=== PATIENT | female | born 1955 | race Caucasian/White ===

== ENCOUNTER → 2018-01-21 10:40 | Outpatient (CLI) | payer OTHER, SELFPAY ==
--- NOTE | 2018-01-21 | DI.MG.S_ITS ---
BILATERAL DIGITAL SCREENING MAMMOGRAM 3D/2D WITH CAD: 01/21/2018 CLINICAL: Routine screening. Family history of breast cancer. Comparison is made to exams dated: 05/28/2016 mammogram, 06/07/2015 mammogram, and 05/10/2014 mammogram - [facility]. There are scattered fibroglandular elements in both breasts. Current study was also evaluated with a Computer Aided Detection (CAD) system. There are benign calcifications in both breasts. No significant masses, calcifications, or other findings are seen in either breast. There has been no significant interval change. IMPRESSION: BENIGN There is no mammographic evidence of malignancy. A 1 year screening mammogram is recommended. This exam was interpreted at Station ID: [id number]. NOTE: For mammograms, a report in lay terms will be sent to the patient. Approximately 15% of breast malignancies will not be visualized mammographically. In the management of a palpable breast mass, a negative mammogram must not discourage biopsy of a clinically suspicious lesion. Electronically Signed By: Gus sepulveda/antonella:01/23/2018 02:34:21 letter sent: Normal Exam ACR BI-RADS Category 2: Benign Finding(s) 3342F
== END ==
PROVIDERS: PCP Family Medicine; Visit Provider Family Medicine
DX: Z12.31 Encounter for screening mammogram for malignant neoplasm of breast (principal); Z80.3 Family history of malignant neoplasm of breast
CPT/HCPCS: 77063; 77067

== ENCOUNTER 2018-02-19 09:25 | Day surgery (SDC) | payer OTHER, SELFPAY ==
[2018-02-19 09:51] VITALS: BP 131/96; PULSE 78; RESP 16; TEMP 36.6; O2SAT 95; BMI 31.6
[2018-02-19] MEDS: SODIUM CHLORIDE 0.9% 1,000 ML 200 ML IV (10:04)
--- NOTE | 2018-02-19 10:53 | PM.HP.1 ---
History of Present Illness Date Patient Seen: 02/19/18 Time Patient Seen: 10:53 Chief complaint: [id number] Narrative: Very pleasant and generally healthy 63-year-old lady who presents for a screening colonoscopy. Her last colonoscopy was approximately 5 years ago. She has a personal history of polyps found at each of her prior colonoscopies. She denies any new problems or symptoms related to the function of her GI tract. Patient History Family & Social History Family History: Reviewed 02/19/18 by Sandra Hong MD Social History: household members spouse Meds Home Medications Medication Instructions Recorded Confirmed Type aspirin [Aspir-81] 81 mg PO DAILY 02/19/18 02/19/18 History atorvastatin 20 mg PO DAILY 02/19/18 02/19/18 History levothyroxine 75 mcg PO DAILY 02/19/18 02/19/18 History omeprazole 20 mg PO BID 02/19/18 02/19/18 History Allergies Allergy/AdvReac Type Severity Reaction Status Date / Time No Known Drug Allergies Allergy Verified 02/19/18 09:58 Review of Systems Review of Systems All systems reviewed & are unremarkable except as noted in HPI and below Exam Vital Signs (past 8 hours): - 02/19/18 09:51 Temperature 97.8 F Pulse Rate 78 Respiratory Rate 16 Blood Pressure 131/96 H Pulse Oximetry 95 Oxygen Delivery Method Room Air Narrative Exam Narrative: Very pleasant, healthy, well-nourished, and well-developed lady in no distress HEENT: Normocephalic and atraumatic, pupils equal round reactive to light accommodation with anicteric sclera Lungs: Clear to auscultation bilaterally Heart: Regular rate rhythm without murmur rub or gallop Abdomen: Soft, nontender, active bowel sounds Extremities: Warm well perfused Assessment & Plan Plan: Assessment/Plan Narrative: Very pleasant lady with a personal history of colon polyps who is here for screening colonoscopy. We discussed the risks and benefits of the procedure and she has expressed a desire to complete it today
[2018-02-19] MEDS: fentaNYL 250 MCG/5 ML INJ IV (11:15)
[2018-02-19] MEDS: MIDAZOLAM 5 MG/5 ML VIAL IV (11:16)
[2018-02-19 11:25] VITALS: BP 106/71; PULSE 66; RESP 20; TEMP 36.9; O2SAT 98
--- NOTE | 2018-02-19 11:26 | PM.OP.1 ---
Operative Date/Time/Diagnoses Date of procedure: 02/19/18 Time of procedure: 11:27 Pre-op diagnosis: Screening Personal history of colon polyps Post-op diagnosis: same Procedure & Clinicians Procedure: Colonoscopy to the cecum Same procedure as scheduled: Yes Indications: Last colonoscopy 5 years ago Surgeon: Sandra Hong Click Yes if Unassisted: Yes Anesthesia Type: Sedation (Versed 7 mg; fentanyl 250 mcg) Operative Notes Findings: 1. Excellent prep 2. No polyps or mass lesions 3. No AV malformations 4. Mildly tortuous colon with an elongated and dilated transverse colon consistent with chronic constipation 5. Mild diverticulosis limited to the sigmoid region-normal for age 67. Grade 1-2 internal hemorrhoids Closure Type: not applicable Specimen(s): none sent Procedure in detail: After obtaining informed consent, the patient was brought to the GI suite and placed in the left lateral decubitus position on the examination table. After placement of appropriate monitors, the patient was given incremental doses of Versed and Fentanyl until an appropriate level of sedation was achieved. A time out was held per SCOAP protocol. A digital rectal examination was performed and did not reveal any masses or obstructing lesions. The colonoscope was gently passed into the patient's anus and the entire colon navigated to the level of the cecum with minimal difficulty. Once in the cecum, the scope was withdrawn being sure to go before and beyond all mucosal folds and prominences and get an excellent examination. The findings are noted above. At the level of the rectal vault, the scope was retroflexed and the internal anal canal was examined. The scope was straightened and air aspirated from the colon. The instrument was removed from the patient's body and the procedure was concluded. The patient was allowed to awaken from sedation without difficulty and taken to the post-anesthesia care unit in good condition. Total sedation time 36 min Total withdrawal time 9 min 14 sec Complications: none Condition: stable Disposition: PACU Plan for aftercare: 1. Discharge to home 2. Plan for next colonoscopy in 5 years or as clinically indicated
[2018-02-19 11:31] VITALS: BP 108/74; PULSE 69; RESP 16; O2SAT 96
[2018-02-19 11:46] VITALS: BP 112/76; PULSE 69; RESP 18; TEMP 36.3; O2SAT 97
--- NOTE | 2018-02-19 12:08 | SUR.PHASEII ---
Operative note sent with patient per Dr. Hong. Went over the results with pt and her . Both state they understand d/c instructions.
== END 2018-02-19 12:05 | disposition home or self-care (01) ==
PROVIDERS: PCP Family Medicine; Visit Provider Surgery
PROC: 0DJD8ZZ Inspection of Lower Intestinal Tract, Via Natural or Artificial Opening Endoscopic (ICD-10-PCS; CPT 45378; principal; 2018-02-19 10:45)
DX: Z12.11 Encounter for screening for malignant neoplasm of colon (principal); Z86.010 Personal history of colon polyps; K57.30 Diverticulosis of large intestine without perforation or abscess without bleeding; K64.1 Second degree hemorrhoids
CPT/HCPCS: 45378; 99152; 99153; J2250; J3010

== ENCOUNTER → 2018-11-13 08:29 | Outpatient (CLI) | payer OTHER, SELFPAY ==
--- NOTE | 2018-11-13 | DI.US.S_ITS ---
PROCEDURE: US ABDOMEN COMPLETE INDICATIONS: PAIN TECHNIQUE: Real-time scanning was performed of the abdominal and retroperitoneal organs, with image documentation. COMPARISON: [facility], US, ABDOMEN COMPLETE, 04/14/2017, 11:26. FINDINGS: Liver: Liver is normal in size and homogeneous in echotexture. Gallbladder: No gallstones identified. Normal gallbladder wall. No pericholecystic fluid. Negative sonographic Orellana sign. Biliary ducts: Intrahepatic bile ducts are non-dilated. Extrahepatic bile duct caliber measures 4.3 mm. Normal is 6-7 mm or less in diameter, or 10 mm or less post-cholecystectomy. Pancreas: Visualized portions of the pancreas are sonographically normal. Spleen: Spleen is normal in size and homogeneous in echotexture. Kidneys: Kidneys are normal in size and echotexture. Right kidney measures 11.8 cm long; left kidney measures 11.7 cm long. No hydronephrosis or nephrolithiasis. No solid masses. Aorta: Visualized aorta is normal in caliber at less than 3 cm. Iliacs: Not well-visualized. IVC: Intrahepatic inferior vena cava is patent. Miscellaneous: No free abdominal fluid. IMPRESSION: No source for abdominal pain identified. Dictated by: Varghese Moser [facility] Interpreted: Berry Damico MD on 11/13/2018 at 9:19 Approved by: Berry Damico M.D. on 11/13/2018 at 12:08
== END ==
PROVIDERS: PCP Family Medicine; Visit Provider Family Medicine
DX: R10.9 Unspecified abdominal pain (principal)
CPT/HCPCS: 76700

== ENCOUNTER → 2019-02-20 09:19 | Outpatient (CLI) | payer OTHER, SELFPAY ==
--- NOTE | 2019-02-20 | DI.MG.S_ITS ---
BILATERAL DIGITAL SCREENING MAMMOGRAM 3D/2D WITH CAD: 02/20/2019 CLINICAL: Routine screening. Family history of breast cancer. Comparison is made to exams dated: 01/21/2018 mammogram - [facility], 05/28/2016 mammogram, and 06/07/2015 mammogram - [facility]. There are scattered fibroglandular elements in both breasts. Current study was also evaluated with a Computer Aided Detection (CAD) system. There are benign calcifications in both breasts. No significant masses, calcifications, or other findings are seen in either breast. There has been no significant interval change. IMPRESSION: There is no mammographic evidence of malignancy. A 1 year screening mammogram is recommended. This exam was interpreted at Station ID: [id number]. NOTE: For mammograms, a report in lay terms will be sent to the patient. Approximately 15% of breast malignancies will not be visualized mammographically. In the management of a palpable breast mass, a negative mammogram must not discourage biopsy of a clinically suspicious lesion. Electronically Signed By: Graeme guillermo/antonella:02/22/2019 07:30:06 letter sent: Normal Exam ACR BI-RADS Category 2: Benign Finding(s) 3342F
== END ==
PROVIDERS: PCP Family Medicine; Visit Provider Family Medicine
DX: Z12.31 Encounter for screening mammogram for malignant neoplasm of breast (principal); Z80.3 Family history of malignant neoplasm of breast
CPT/HCPCS: 77063; 77067

== ENCOUNTER → 2019-11-11 12:38 | Outpatient (CLI) | payer OTHER, SELFPAY ==
--- NOTE | 2019-11-11 | DI.MRI.S_ITS ---
PROCEDURE: MR HEAD/BRAIN WO CON INDICATIONS: HEADACHE TECHNIQUE: Non-contrast axial T1 spin echo, axial T2 fast spin echo, sagittal and axial FLAIR, coronal T2 fast spin echo, axial gradient echo, axial diffusion and ADC through the brain. COMPARISON: None. FINDINGS: Image quality: Excellent. CSF spaces: Ventricles appear symmetric in size and shape. Basal cisterns are patent. No extra-axial fluid collections. Brain: No intracranial bleeds or mass effects. There is cerebral volume loss for age. There are periventricular and deep white matter chronic small vessel ischemic changes. Brainstem appears normal. Diffusion-weighted images show no acute ischemic insults. No chronic ischemic insults. Normal intravascular flow voids are present. Skull and face: Calvarial bone marrow is normal in signal. Orbits are normal. Sinuses: Sinuses and mastoids are clear. IMPRESSION: 1. Mild volume loss and small vessel ischemic disease. 2. No acute process. No recent infarct. No explanation for headache. Dictated by: Volodymyr Holly M.D. on 11/11/2019 at 14:52 Approved by: Volodymyr Holly M.D. on 11/11/2019 at 14:53
== END ==
PROVIDERS: PCP Family Medicine; Referring Provider Family Medicine; Visit Provider Family Medicine
DX: R51 Headache (principal)
CPT/HCPCS: 70551

== ENCOUNTER → 2020-05-24 16:26 | Outpatient (CLI) | payer OTHER, SELFPAY ==
--- NOTE | 2020-05-24 | DI.MG.S_ITS ---
BILATERAL DIGITAL SCREENING MAMMOGRAM 3D/2D WITH CAD: 05/24/2020 CLINICAL: Routine screening. Family history of breast cancer. Comparison is made to exams dated: 02/20/2019 mammogram, 01/21/2018 mammogram - [facility], and 05/28/2016 mammogram - [facility]. There are scattered fibroglandular elements in both breasts. Current study was also evaluated with a Computer Aided Detection (CAD) system. There are benign calcifications in both breasts. No significant masses, calcifications, or other findings are seen in either breast. There has been no significant interval change. IMPRESSION: BENIGN There is no mammographic evidence of malignancy. A 1 year screening mammogram is recommended. This exam was interpreted at Station ID: [id number]. NOTE: For mammograms, a report in lay terms will be sent to the patient. Approximately 15% of breast malignancies will not be visualized mammographically. In the management of a palpable breast mass, a negative mammogram must not discourage biopsy of a clinically suspicious lesion. Electronically Signed By: Mago castro/antonella:05/24/2020 17:26:15 letter sent: Normal Exam ACR BI-RADS Category 2: Benign Finding(s) 3342F
== END ==
PROVIDERS: PCP Family Medicine; Referring Provider Family Medicine; Visit Provider Family Medicine
DX: Z12.31 Encounter for screening mammogram for malignant neoplasm of breast (principal)
CPT/HCPCS: 77063; 77067

== ENCOUNTER → 2021-05-25 10:24 | Outpatient (CLI) | payer MEDICARE, OTHER, SELFPAY ==
--- NOTE | 2021-05-25 | DI.MG.S_ITS ---
BILATERAL DIGITAL SCREENING MAMMOGRAM 3D/2D WITH CAD: 05/25/2021 CLINICAL: Routine screening. Family history of breast cancer. Comparison is made to exams dated: 05/24/2020 mammogram, 02/20/2019 mammogram, 01/21/2018 mammogram - [facility], and 06/07/2015 mammogram - [facility]. There are scattered fibroglandular elements in both breasts. Current study was also evaluated with a Computer Aided Detection (CAD) system. No significant masses, calcifications, or other findings are seen in either breast. There has been no significant interval change. IMPRESSION: NEGATIVE There is no mammographic evidence of malignancy. A 1 year screening mammogram is recommended. This exam was interpreted at Station ID: [id number]. NOTE: For mammograms, a report in lay terms will be sent to the patient. Approximately 15% of breast malignancies will not be visualized mammographically. In the management of a palpable breast mass, a negative mammogram must not discourage biopsy of a clinically suspicious lesion. Electronically Signed By: Robby conteh/antonella:05/25/2021 12:32:05 letter sent: Normal Exam ACR BI-RADS Category 1: Negative 3341F
== END ==
PROVIDERS: PCP Family Medicine; Referring Provider Family Medicine; Visit Provider Family Medicine
DX: Z12.31 Encounter for screening mammogram for malignant neoplasm of breast (principal); Z80.3 Family history of malignant neoplasm of breast
CPT/HCPCS: 77063; 77067

== ENCOUNTER → 2021-07-04 10:54 | Outpatient (CLI) | payer MEDICARE, OTHER, SELFPAY ==
--- NOTE | 2021-07-04 | DI.MRI.S_ITS ---
PROCEDURE: MR FOOT RT WO CON INDICATIONS: Other specified injuries of right foot TECHNIQUE: Noncontrast sagittal T1 spin echo and T2 fast spin echo with fat saturation, long-axis T1 spin echo and T2 fast spin echo with fat saturation, short-axis T1 spin echo and T2 fast spin echo with fat saturation through the forefoot. COMPARISON: None. FINDINGS: Image quality: Excellent. Bones and joints: No acute trabecular bone injury. No metatarsal stress fracture. Degenerative changes are seen at the talonavicular joint with subchondral cystic changes. A small ossification is seen dorsal to the navicular-medial cuneiform articulation which may be related to remote prior trauma. Adjacent cystic changes are seen. First metatarsophalangeal alignment is within normal limits. Jypg-ra-vqbhkfau degenerative changes are seen at the 1st metatarsophalangeal joint. Scattered mild degenerative changes are seen at the interphalangeal joints of the toes. Soft tissues: Mild chronic pressure related changes are seen at the plantar aspect of the foot adjacent to the 1st interphalangeal joint and the 5th metatarsal head. The visualized plantar foot muscles demonstrate normal signal and bulk. Visualized flexor and extensor tendons appear intact, without tenosynovitis. The distal insertions of the peroneus brevis and longus tendons appear intact. The principal Lisfranc ligament appears intact. Ill-defined T1 hypointense signal is seen along the plantar aspect of the interspace between the 2nd and 3rd metatarsal heads measuring approximately 7 x 5 x 11 mm, which could represent an intra digital neuroma. Sagittal images demonstrate no evidence for plantar plate tears. IMPRESSION: 1. Mild soft tissue prominence at the plantar aspect of the interspace between the 2nd and 3rd metatarsal heads is nonspecific, but could represent an interdigital Marvin neuroma. 2. Mild to moderate 1st metatarsophalangeal joint degenerative changes. No significant hallux valgus on this nonweightbearing exam. 3. Additional scattered mild degenerative changes are seen in the toes and in the midfoot. Dictated by: Dillon Ramírez M.D. on 07/04/2021 at 11:49 Approved by: Dillon Ramírez M.D. on 07/04/2021 at 12:03
== END ==
PROVIDERS: PCP Family Medicine; Referring Provider Podiatrist; Visit Provider Podiatrist
DX: S99.821A Other specified injuries of right foot, initial encounter (principal); X58.XXXA Exposure to other specified factors, initial encounter
CPT/HCPCS: 73718

== ENCOUNTER → 2021-07-31 12:41 | Outpatient (CLI) | payer MEDICARE, OTHER, SELFPAY ==
--- NOTE | 2021-07-31 12:43 | DI.US.S_ITS ---
PROCEDURE: US ABDOMEN COMPLETE INDICATIONS: ABNORMAL LFTS TECHNIQUE: Real-time scanning was performed of the abdominal and retroperitoneal organs, with image documentation. COMPARISON: None. FINDINGS: Liver: Increased hepatic parenchymal echogenicity. No focal hepatic mass. Gallbladder: Normally distended gallbladder. No gallbladder wall thickening, pericholecystic fluid, sludge, or gallstone. Biliary ducts: Nondilated. Pancreas: Visualized portions of the pancreas are sonographically normal. Spleen: Spleen is normal in size and homogeneous in echotexture. Kidneys: Normal size and appearance. No shadowing calculus or hydronephrosis. Aorta: Visualized aorta is normal in caliber at less than 3 cm. Iliacs: Proximal common iliac arteries are normal in caliber at less than 2.5 cm. IVC: Intrahepatic inferior vena cava is patent. Miscellaneous: No free abdominal fluid. IMPRESSION: Hepatic steatosis. Otherwise normal study. Dictated by: Garrett Marques M.D. on 07/31/2021 at 14:48 Approved by: Garrett Marques M.D. on 07/31/2021 at 14:59
== END ==
PROVIDERS: PCP Family Medicine; Referring Provider Family Medicine; Visit Provider Family Medicine
DX: K76.0 Fatty (change of) liver, not elsewhere classified (principal); R74.9 Abnormal serum enzyme level, unspecified
CPT/HCPCS: 76700

== ENCOUNTER → 2022-06-07 09:59 | Outpatient (CLI) | payer MEDICARE, OTHER, SELFPAY ==
--- NOTE | 2022-06-07 | DI.MG.S_ITS ---
BILATERAL DIGITAL SCREENING MAMMOGRAM 3D/2D WITH CAD: 06/07/2022 CLINICAL: Routine screening. Family history of breast cancer. Comparison is made to exams dated: 05/25/2021 mammogram, 05/24/2020 mammogram, and 02/20/2019 mammogram - . There are scattered areas of fibroglandular density in both breasts (category b / 25%-50% glandular tissue). Current study was also evaluated with a Computer Aided Detection (CAD) system. No significant masses, calcifications, or other findings are seen in either breast. There has been no significant interval change. IMPRESSION: NEGATIVE There is no mammographic evidence of malignancy. A 1 year screening mammogram is recommended. Based on the Tyrer Cuzick model (a risk assessment model) the patient's lifetime risk is 13.0% and her 10 year risk is 6.6%. According to the ACR, ACS, and NCCN guidelines, an annual breast MRI exam along with mammogram is recommended if the patient's lifetime risk is 20% or greater. This exam was interpreted at Station ID: [id number]. NOTE: For mammograms, a report in lay terms will be sent to the patient. Approximately 15% of breast malignancies will not be visualized mammographically. In the management of a palpable breast mass, a negative mammogram must not discourage biopsy of a clinically suspicious lesion. Electronically Signed By: Buzz oswald/antonella:06/10/2022 01:30:05 letter sent: Normal Exam ACR BI-RADS Category 1: Negative 3341F
== END ==
PROVIDERS: PCP Family Medicine; Referring Provider Family Medicine; Visit Provider Family Medicine
DX: Z12.31 Encounter for screening mammogram for malignant neoplasm of breast (principal); Z80.3 Family history of malignant neoplasm of breast
CPT/HCPCS: 77063; 77067

== ENCOUNTER → 2022-07-12 10:15 | Outpatient (CLI) | payer MEDICARE, OTHER, SELFPAY ==
--- NOTE | 2022-07-12 10:16 | DI.CT.S_ITS ---
PROCEDURE: CT ABDOMEN PELVIS W CON INDICATIONS: Left chest wall pain TECHNIQUE: After the administration of oral and intravenous contrast, axial sections were acquired from the lung bases to the pubic symphysis. Coronal and sagittal reformats were performed. For radiation dose reduction, the following was used: automated exposure control, adjustment of mA and/or kV according to patient size. COMPARISON:None. FINDINGS: Image quality: Excellent. Lung bases: Unremarkable. Heart: No significant findings. ABDOMEN: Liver: Unremarkable. Gallbladder: Unremarkable. Biliary ducts: Unremarkable. Pancreas: Unremarkable. Spleen: Unremarkable. Adrenal Glands: Unremarkable. Kidneys and Ureters: Unremarkable. Stomach and Bowel: Stomach, small bowel loops, and colon are unremarkable. There is likely a small thin walled appendiceal stump present. Peritoneum: No abnormal intraperitoneal fluid. No free air. Ventral Wall: No hernia. Abdominal Nodes: No retroperitoneal or mesenteric adenopathy by size criteria. Vessels: Aorta and inferior vena cava are normal in size. PELVIS: Pelvic Organs: The uterus is markedly enlarged and has a heterogeneous appearance. There is likely a large anterior fundal pedunculated fibroid present. The bilateral ovaries are not well characterized. Bladder: Unremarkable. Pelvic Nodes: No enlarged lymph nodes. Miscellaneous: No inguinal hernias are seen. Bones: Unremarkable. IMPRESSION: 1. No acute intra-abdominal findings. 2. Markedly enlarged heterogeneous uterus. Findings suggest multiple uterine fibroids; however no prior comparisons are available to determine the acuity of this finding. Either pelvic ultrasound or gynecologic protocol MRI is recommended to further characterize this finding. Alternatively, if prior outside studies are available and can be obtained, these can be compared to the current study and an addendum can be issued at a future date. Dictated by: Salma Dick M.D. on 07/12/2022 at 13:32 Approved by: Salma Dick M.D. on 07/12/2022 at 13:37
== END ==
PROVIDERS: PCP Family Medicine; Referring Provider Surgery; Visit Provider Surgery
DX: R07.89 Other chest pain (principal); N85.2 Hypertrophy of uterus
CPT/HCPCS: 74177; Q9967

== ENCOUNTER 2022-09-20 07:00 | Day surgery (SDC) | payer MEDICARE, OTHER, SELFPAY ==
--- NOTE | 2022-09-20 | PATH_ITS ---
[facility] Accession Number: [id number] No. of containers..07 Tissue . 01 Material submitted: . PART A: body - POLYPOID PART B: body - SESSILE PART C: pylorus - PYLORUS PART D: duodenum - DUODENUM PART E: esophagus - GE JUNCTION PART F: esophagus - DISTAL ESOPHAGEAL LESION PART G: esophagus - ESOPHAGUS . 01 Diagnosis: A. Designated Polypoid, Biopsy: Fundic gland polyp. No evidence of Helicobacter organisms on H/E stain. Negative for intestinal metaplasia. Negative for dysplasia and malignancy. . B. Designated Sessile, Biopsy: Body type mucosa with a few dilated glands consistent with fundic gland polyp. No evidence of Helicobacter on H/E stain. Negative for intestinal metaplasia. Negative for dysplasia and malignancy. . C. Stomach, Pylorus, Biopsy: Antral mucosa with no diagnostic abnormality. Negative for Helicobacter by immunohistochemistry. Negative for intestinal metaplasia. Negative for dysplasia and malignancy. . D. Duodenum, Biopsy: Duodenal mucosa with no diagnostic abnormality. Negative for active inflammation, features of sprue, dysplasia, or malignancy. . E. Gastroesophageal Junction, Biopsy: Squamocolumnar junctional mucosa with no diagnostic abnormality. Single separate fragment of small bowel with no diagnostic abnormality. Negative for intestinal metaplasia in squamocolumnar junctional mucosa. Negative for dysplasia and malignancy. . F. Distal Esophagus, Lesion, Biopsy: Squamocolumnar junctional mucosa with no diagnostic abnormality. Negative for intestinal metaplasia. Negative for dysplasia and malignancy. . G. Esophagus, Biopsy: Squamous mucosa with no diagnostic abnormality. Intraepithelial eosinophils are not increased. Negative for dysplasia and malignancy. [facility] 09/26/2022 1357 Local . 01 Electronically signed: . Billie Ely MD, Pathologist NPI- [id number] . 01 Gross description: . Part A: POLYPOID: Received in formalin is 1 fragment(s) of holly, soft tissue measuring 0.6 x 0.4 x 0.4 cm submitted entirely in 1 cassette(s) Part B: SESSILE: Received in formalin are 2 fragment(s) of holly, soft tissue measuring 0.3 x 0.2 x 0.1 cm to 0.3 x 0.1 x 0.1 cm submitted entirely in 1 cassette(s) Part C: PYLORUS: Received in formalin is 1 fragment(s) of holly, soft tissue measuring 0.1 x 0.1 x 0.1 cm submitted entirely in 1 cassette(s) Part D: DUODENUM: Received in formalin is 1 fragment(s) of holly, soft tissue measuring 0.1 x 0.1 x 0.1 cm submitted entirely in 1 cassette(s) Part E: GE JUNCTION: Received in formalin are 3 fragment(s) of holly, soft tissue measuring 0.4 x 0.2 x 0.2 cm to 0.2 x 0.1 x 0.1 cm submitted entirely in 1 cassette(s) Part F: DISTAL ESOPHAGEAL LESION: Received in formalin are 2 fragment(s) of holly, soft tissue measuring 0.2 x 0.1 x 0.1 cm to 0.1 x 0.1 x 0.1 cm submitted entirely in 1 cassette(s) Part G: ESOPHAGUS: Received in formalin are multiple fragment(s) of holly, soft tissue measuring 0.6 x 0.2 x 0.1 cm in aggregate submitted entirely in 1 cassette(s) /[facility] 09/24/2022 1615 Local . 01 Microscopic: . C. An immunohistochemical stain was performed to evaluate for Helicobacter organisms and is negative. The control stain showed appropriate reactivity. . E. An AB-PAS stain was performed to evaluate for intestinal metaplasia and highlights goblet cells in one fragment with features consistent with small bowel. The remaining fragments of squamocolumnar junction are negative for intestinal metaplasia. The control stain showed appropriate reactivity. . G. An AB-PAS stain was performed to evaluate for intestinal metaplasia and is negative. The control stain showed appropriate reactivity. . . . * This test was developed and its performance characteristics determined by [employer]. It has not been cleared or approved by the U.S. Food and Drug Administration. The FDA has determined that such clearance or approval is not necessary. This test is used for clinical purposes. It should not be regarded as investigational or for research. . 01 Pathologist provided ICD-10: R10.13, Z12.11 . 01 CPT . 104399, 811613, 818198, 143752, 729412, 577104, 060442, [id number], 027487, 173818 Specimen Comment: A courtesy copy of this report has been sent to [facility] Performed at: 01 [facility] [address] [place] [address], [place], [place] [id number] MD Buzz Calvillo MD Phone: [phone]
[2022-09-20 07:19] VITALS: BP 149/91; PULSE 84; RESP 17; TEMP 36.3; O2SAT 97; BMI 34.3
[2022-09-20] MEDS: LACTATED RINGERS 1,000 ML 42 ML IV (07:28)
--- NOTE | 2022-09-20 07:58 | PM.HP.1 ---
History of Present Illness History of Present Illness Chief complaint: Colonoscopy Narrative: Ms. Martines is sent today by her primary care physician.? She is supposed to have a colonoscopy every 5 years and has had a history of polyps in the past.? As far she knows her last colonoscopy did not find any polyps and was about 5 years ago.? She denies family history of colon cancer does not have any concerning symptoms or bleeding. Regarding her request for an EGD:? Ms. Maritnes states that she has been experiencing left-sided subcostal ?pressure? for the last several months.? She notices that activities such as yoga stretching twisting seemed to bring on this pressure.? She 1st noticed this sensation around last summer.? Few years ago she had an ultrasound of the area and does far she knows it was unremarkable.? She does have a history of acid reflux which was diagnosed about 20 years ago and presented with a cough at the time.? She does recall she had an EGD back then and she thinks they diagnosed esophagitis.? She has been on antacid medication since then and has not had a recurrence of the same symptoms.? She denies nausea she denies heartburn she denies dysphasia.? She does say that at times that left-sided pain seems to radiate to her epigastric region. no changes. 20+ years of GERD on protonix daily. dx with cough. No obv. GERD sx now, but still w the LUQ pain. PFSH Medical History Hyperlipemia Hypothyroid Obesity Family History (Updated 07/09/22 @ 14:26 by Cyn Connell RN) Mother Hypertension Congestive heart failure Cancer Father Cancer Social History household members: spouse Smoking Status: Never smoker Meds Home Medications and Allergies Home Medications Medication Instructions Recorded Confirmed Type aspirin 81 mg tablet,delayed 81 mg PO DAILY 02/19/18 09/20/22 History release (Aspir-) atorvastatin 20 mg tablet 20 mg PO DAILY 02/19/18 09/20/22 History levothyroxine 75 mcg tablet 75 mcg PO DAILY 02/19/18 09/20/22 History cholecalciferol (vitamin D3) 50 50 mcg PO DAILY 07/09/22 09/20/22 History mcg (2,000 unit) capsule esomeprazole magnesium 20 mg 20 mg PO DAILY 07/09/22 09/20/22 History capsule,delayed release multivitamin (Daily Multi-Vitamin 1 tab PO DAILY 07/09/22 09/20/22 History tablet) vitamin B complex 1 tab PO DAILY 07/09/22 09/20/22 History Allergies Allergy/AdvReac Type Severity Reaction Status Date / Time No Known Drug Allergies Allergy Verified 07/09/22 14:20 Exam Vital Signs (past 8 hours): - 09/20/22 07:19 Temperature 97.3 F L Pulse Rate 84 Respiratory Rate 17 Blood Pressure 149/91 H Pulse Oximetry 97 Oxygen Delivery Method Room Air Oxygen Delivery Method Room Air Const General: cooperative, healthy appearing and comfortable HENMT Head: normal to inspection Resp Effort & Inspection: normal respiratory effort and able to speak in complete sentences Cardio Pulses: radial pulses present GI Palpation: soft and No tender Assessment & Plan Assessment & Plan narrative: I discussed with Ms. Martines the risks benefits and alternatives of continuing with a colonoscopy, including but not limited to perforation of the colon and an incomplete exam. I discussed gastroenterologists versus general surgeons.? She would like to proceed.? Additionally I did discuss EGD risks benefits and alternatives and she would like to proceed.? CT scan personally reviewed and discussed w pt. Proceed w EGD
[2022-09-20 09:10] VITALS: BP 109/70; PULSE 58; RESP 19; TEMP 36.3; O2SAT 95
[2022-09-20 09:15] VITALS: BP 106/76; PULSE 63; RESP 19; O2SAT 98
[2022-09-20 09:20] VITALS: BP 137/85; PULSE 60; RESP 14; O2SAT 97
[2022-09-20 09:22] VITALS: BP 147/86; PULSE 58; RESP 14; TEMP 36.3; O2SAT 99
--- NOTE | 2022-09-20 09:28 | P.OP.EGD&C_ITS ---
Operative Date/Time/Diagnoses Date of procedure: 09/20/22 Pre-op diagnosis: Colon cancer screening and left upper quadrant pain Procedure & Clinicians Study performed: EGD with biopsy and colonoscopy Same procedure as scheduled: Yes Indications: Left upper quadrant pain and colon cancer screening, history of polyps Surgeon: Erika Armenta Procedure Notes Procedure in detail: Patient was taken to the endoscopy suite and placed in a left lateral decubitus position. A time-out was performed. With the help of anesthesiologist conscious sedation was induced monitored throughout the procedure. Bite block was placed. The EGD scope was placed into the mouth and threaded through the esophagus with out difficulty. The scope was advanced into the stomach past the pylorus and into the duodenum. Upon entry to the stomach some several polyps of 2 different types of qualities were noted. There were more reddened 1 that were more polypoid looking and some more whitish colored ones that were more sessile. There were several of each type and multiple photographs were obtained. Additi onally biopsies of each type were taken and sent in separate specimen bottles. Next the pylorus did have some signs of inflammation photograph was obtained and biopsies were taken. The duodenum was entered and photographs were taken there as well as biopsies. Finally the scope was retroflexed and no hiatal hernia was seen from this view. A photograph was obtained. The scope was then withdrawn into the esophagus and several photographs of the GE junction were obtained. Had a classic look of Brice's esophagus the changes were circumferential and at least a cm in length. Four quadrant biopsies were obtained. The scope was then withdrawn a little bit further into the esophagus and there were some small polyps seen that were biopsied. Photographs were obtained of this as well. As the EGD scope was withdrawn a few more esophageal biopsies were taken. The remainder of the esophagus appeared normal Attention was then turned to the colonoscopy. A digital rectal exam was performed there were no masses or strictures. Colonoscope then introduced into the anal canal and advanced through to cecum. A photograph was obtained of the appendiceal orifice. The scope was then withdrawn for 15 minutes. No polyps were seen. The scope was retroflexed photograph was obtained. The prep was good Paradise bowel prep score of 2. Findings: Brice's esophagus, gastritis and polyp (Gastric polyps) Complications: none Impression: 1. There were signs of inflammation in the stomach and esophagus. Including circumferential Brice's that was probably about 1 cm and was biopsied. 2. There were no colon polyps the prep was good without a family history of colon cancer or other concerning symptoms,10 year follow-up Post-procedure Recommendations: Colonscopy in 10 years Plan for aftercare: Repeat EGD and screening per vector control specialist. Will wait for biopsy results finalize diagnosis of Brice's but grossly it looked very typical there are photographs.
== END 2022-09-20 09:39 | disposition home or self-care (01) ==
PROVIDERS: PCP Family Medicine; Referring Provider Surgery; Visit Provider Surgery
PROC: 0DJ08ZZ Inspection of Upper Intestinal Tract, Via Natural or Artificial Opening Endoscopic (ICD-10-PCS; CPT 43235; principal; 2022-09-20 07:45)
PROC: 0DJD8ZZ Inspection of Lower Intestinal Tract, Via Natural or Artificial Opening Endoscopic (ICD-10-PCS; CPT 45378; 2022-09-20 07:45)
DX: Z12.11 Encounter for screening for malignant neoplasm of colon (principal); Z86.010 Personal history of colon polyps; R10.13 Epigastric pain; K29.70 Gastritis, unspecified, without bleeding; K31.7 Polyp of stomach and duodenum
CPT/HCPCS: 43239; G0105; J2704

== ENCOUNTER → 2023-06-13 15:05 | Outpatient (CLI) | payer MEDICARE, OTHER, SELFPAY ==
--- NOTE | 2023-06-13 15:07 | DI.MG.S_ITS ---
BILATERAL DIGITAL SCREENING MAMMOGRAM 3D/2D WITH CAD: 06/13/2023 CLINICAL: Routine screening. Family history of breast cancer. Comparison is made to exams dated: 06/07/2022 mammogram, 05/25/2021 mammogram, and 05/24/2020 mammogram - [facility]. There are scattered areas of fibroglandular density in both breasts (category b / 25%-50% glandular tissue). Current study was also evaluated with a Computer Aided Detection (CAD) system. No significant masses, calcifications, or other findings are seen in either breast. There has been no significant interval change. IMPRESSION: NEGATIVE There is no mammographic evidence of malignancy. A 1 year screening mammogram is recommended. Based on the Tyrer Cuzick model (a risk assessment model) the patient's lifetime risk is 12.4% and her 10 year risk is 6.6%. According to the ACR, ACS, and NCCN guidelines, an annual breast MRI exam along with mammogram is recommended if the patient's lifetime risk is 20% or greater. This exam was interpreted at Station ID: [id number]. NOTE: For mammograms, a report in lay terms will be sent to the patient. Approximately 15% of breast malignancies will not be visualized mammographically. In the management of a palpable breast mass, a negative mammogram must not discourage biopsy of a clinically suspicious lesion. Electronically Signed By: Vandana Brown M.D., PH.D eb/antonella:06/13/2023 22:18:41 letter sent: Normal Exam ACR BI-RADS Category 1: Negative [id number]
== END ==
PROVIDERS: PCP Family Medicine; Referring Provider Family Medicine; Visit Provider Family Medicine
DX: Z12.31 Encounter for screening mammogram for malignant neoplasm of breast (principal); Z80.3 Family history of malignant neoplasm of breast; R92.323 Mammographic fibroglandular density, bilateral breasts
CPT/HCPCS: 77063; 77067

== ENCOUNTER → 2023-11-12 10:57 | Outpatient (CLI) | payer MEDICARE, OTHER, SELFPAY ==
--- NOTE | 2023-11-12 11:00 | DI.RAD.S_ITS ---
PROCEDURE: XR KNEE LT 3V INDICATIONS: LOWER LEG PAIN TECHNIQUE: 3 views of the knee were acquired. COMPARISON: None. FINDINGS: Bones: No fractures or dislocations. No suspicious bony lesions. There is [id number] tricompartmental arthritic change most severe medially. Periarticular osteophytes are present without erosions. Soft tissues: Mild joint effusion. No suspicious soft tissue calcifications. IMPRESSION: [id number]-mb-[id number] tricompartmental arthritic change most severe medially. Dictated by: Brianna Bone M.D. on 11/12/2023 at 15:06 Approved by: Brianna Bone M.D. on 11/12/2023 at 15:07
--- NOTE | 2023-11-12 11:01 | DI.RAD.S_ITS ---
PROCEDURE: XR TIBIA FIBULA LT 2V INDICATIONS: Lower leg pain. TECHNIQUE: 3 views of the tibia and fibula were acquired. COMPARISON: None. FINDINGS: Bones: No fractures or dislocations. Left knee and ankle joint osteoarthritic changes are seen. No suspicious bony lesions. Soft tissues: No suspicious soft tissue calcifications or masses. IMPRESSION: No acute lower leg fracture or dislocation. Left knee and ankle joint osteoarthritis. No gross soft tissue abnormalities. Dictated by: Manpreet Ware M.D. on 11/12/2023 at 16:16 Approved by: Manpreet Ware M.D. on 11/12/2023 at 16:17
== END ==
PROVIDERS: PCP Family Medicine; Referring Provider Family Medicine; Visit Provider Family Medicine
DX: M19.072 Primary osteoarthritis, left ankle and foot (principal); M17.12 Unilateral primary osteoarthritis, left knee; M79.662 Pain in left lower leg; M25.562 Pain in left knee
CPT/HCPCS: 73562; 73590

== ENCOUNTER → 2024-07-01 09:05 | Outpatient (CLI) | payer MEDICARE, OTHER, SELFPAY ==
--- NOTE | 2024-07-01 09:06 | DI.MG.S_ITS ---
BILATERAL DIGITAL SCREENING MAMMOGRAM 3D/2D WITH CAD: 07/01/2024 CLINICAL: Routine screening. Family history of breast cancer. Comparison is made to exams dated: 06/13/2023 mammogram, 06/07/2022 mammogram, and 05/25/2021 mammogram - [facility]. The breasts are almost entirely fatty (category a/<25% glandular tissue). Current study was also evaluated with a Computer Aided Detection (CAD) system. No significant masses, calcifications, or other findings are seen in either breast. There has been no significant interval change. IMPRESSION: NEGATIVE There is no mammographic evidence of malignancy. A 1 year screening mammogram is recommended. Based on the Tyrer Cuzick model (a risk assessment model) the patient's lifetime risk is 7.9% and her 10 year risk is 4.4%. According to the ACR, ACS, and NCCN guidelines, an annual breast MRI exam along with mammogram is recommended if the patient's lifetime risk is 20% or greater. This exam was interpreted at Station ID: [id number]. NOTE: For mammograms, a report in lay terms will be sent to the patient. Approximately 15% of breast malignancies will not be visualized mammographically. In the management of a palpable breast mass, a negative mammogram must not discourage biopsy of a clinically suspicious lesion. Electronically Signed By: Mago castro/antonella:07/01/2024 17:32:53 letter sent: Normal Exam ACR BI-RADS Category 1: Negative
== END ==
LOC: MAMMO 09:06
PROVIDERS: PCP Family Medicine; Referring Provider Family Medicine; Visit Provider Family Medicine
DX: Z12.31 Encounter for screening mammogram for malignant neoplasm of breast (principal); Z80.3 Family history of malignant neoplasm of breast; R92.313 Mammographic fatty tissue density, bilateral breasts
CPT/HCPCS: 77063; 77067

== ENCOUNTER → 2024-10-06 09:51 | Outpatient (CLI) | payer MEDICARE, OTHER, SELFPAY ==
--- NOTE | 2024-10-06 09:53 | DI.CT.S_ITS ---
PROCEDURE: CT ABDOMEN PELVIS W CON INDICATIONS: ELEV LFT'S TECHNIQUE: After the administration of intravenous contrast, axial sections acquired from the lung bases to the pubic symphysis. Coronal and sagittal reformats were performed. For radiation dose reduction, the following was used: automated exposure control, adjustment of mA and/or kV according to patient size. COMPARISON: [facility], CT, CT ABDOMEN PELVIS W CON, 07/12/2022, 11:58. FINDINGS: Image quality: Diagnostic. Lower Chest: No significant findings. ABDOMEN: Liver: No solid mass. Steatosis. Liver measures 18 cm. Gallbladder: No radiopaque gallstones or wall thickening. Biliary ducts: No biliary dilation. Pancreas: No ductal dilation. Spleen: Size is within normal limits. Adrenal Glands: No adrenal nodules. Kidneys and Ureters: No hydronephrosis. No solid mass. No complex renal cystic lesion which requires follow up. Stomach and Bowel: Normal colonic caliber, without significant wall thickening. Appendix is normal. Peritoneum: No abnormal intraperitoneal fluid. No free air. Ventral Wall: No significant ventral hernia. Abdominal Nodes: No retroperitoneal or mesenteric adenopathy by size criteria. Vessels: Aorta and inferior vena cava are normal in size. PELVIS: Pelvic Organs: Uterus is lobulated with areas of heterogeneous enhancement and calcification appearing slightly more prominent when compared to prior exam. Bladder: No bladder wall thickening, accounting for underdistention. Pelvic Nodes: No enlarged lymph nodes. Miscellaneous: No inguinal hernias are seen. Bones: No aggressive osseous abnormality. IMPRESSION: Hepatic steatosis. Enlargement of the uterus with areas of calcification slightly more prominent overall most consistent with previous appearance fibroids. Further evaluation with ultrasound/MRI with BARREL BURNER protocol may be obtained as clinically indicated. Dictated by: Brianna Bone M.D. on 10/06/2024 at 11:57 Approved by: Brinana Bone M.D. on 10/06/2024 at 12:00
[2024-10-06 10:40] LABS: Estimated Glomerular Filt Rate > 60 mL/min (>60)
== END ==
PROVIDERS: PCP Family Medicine; Referring Provider Family Medicine; Visit Provider Family Medicine
DX: K76.0 Fatty (change of) liver, not elsewhere classified (principal); N85.2 Hypertrophy of uterus; R74.01 Elevation of levels of liver transaminase levels; R10.13 Epigastric pain
CPT/HCPCS: 36415; 74177; 82565; Q9967

== ENCOUNTER → 2024-10-27 15:11 | Outpatient (CLI) | payer MEDICARE, OTHER, SELFPAY ==
--- NOTE | 2024-10-27 15:13 | DI.US.S_ITS ---
PROCEDURE: US PELVIC COMPLETE INDICATIONS: ELEVATED LIVER TRANSAMINASE TECHNIQUE: Real-time scanning was performed of the pelvic organs, with image documentation. Additional endovaginal scanning was necessary due to incomplete visualization of the adnexal and endometrial structures by transabdominal scanning. COMPARISON: [facility], CT, CT ABDOMEN PELVIS W CON, 10/06/2024, 11:00. FINDINGS: Uterus: Uterus is anteverted and mildly enlarged at 10.1 x 7.6 x 3.6 cm. The myometrium is heterogeneous. The endometrium measures 4.5 mm combined thickness, but is distorted by fibroids. Multiple uterine fibroids, the largest three are as follows: -Midline posterior intramural fibroid measuring 3.9 x 3.9 x 2.8 cm. -Left lateral intramural fibroid measuring 2.9 x 2.8 x 2.5 cm. -Right lateral intramural fibroid measuring 2.4 x 2.5 x 1.7 cm. Ovaries: Ovaries are not well visualized. No adnexal masses are seen. Other: No pathologic free abdominal or pelvic fluid. IMPRESSION: Enlarged fibroid uterus. Approved by: Dillon Ramírez M.D. on 10/28/2024 at 16:26
--- NOTE | 2024-10-27 15:15 | DI.MRI.S_ITS ---
PROCEDURE: MR PELVIS WO/W CON INDICATIONS: ELEVATED LIVER TRANSAMINASE, enlarged uterus TECHNIQUE: Coronal HASTE, sagittal breath-hold T2 FSE; axial T1 FSE with and without fat saturation through the pelvis. Optional long- and short-axis uterine nonbreath-hold T2 FSE through the uterus. Sagittal or axial dynamic VIBE during administration of contrast. Post-contrast axial or coronal VIBE/2-D FLASH with fat saturation from the iliac crests to the symphysis. Optional diffusion weighted imaging and ADC may be performed. COMPARISON: [facility], CT, CT ABDOMEN PELVIS W CON, 10/06/2024, 11:00. FINDINGS: Image quality: Suboptimal due to motion artifact.. Uterus: The uterus is enlarged with a lobulated contour and measures 11.3 x 6.0 x 8.9 cm. There are numerous T2 hypointense fibroids throughout the uterus. There is an enhancing, anterior fundal subserosal, nearly pedunculated fibroid measuring about 7.0 x 4.7 x 4.4 cm. There is a submucosal fibroid in the anterior fundus measuring about 2.7 x 2.7 x 2.0 cm. Many fibroids are diffusely enhancing. Some are centrally hypoenhancing. The endometrium is normal thickness. The junctional zone is not well seen. The cervix appears within normal limits. Vaginal canal is normal. Adnexa: There is a probable residual follicle on the right ovary. Left ovary is not well seen. Both ovaries are normal in size for age, without suspicious cystic or solid lesions. Urinary system: Bladder wall is normal in thickness. Distal ureters are non distended. Urethra appears normal in morphology. Nodes and vessels: No pelvic or inguinal adenopathy by size criteria. Iliac vessels are normal in size. Bowel and peritoneum: No pathologic free pelvic fluid. Inferior colon and small bowel loops are normal in caliber. Soft tissues: No inguinal hernias. No findings of pelvic floor incompetence in the absence of provocation. Bones: Marrow demonstrates normal overall signal. IMPRESSION: Enlarged, fibroid uterus. A submucosal fibroid may cause postmenopausal bleeding. Otherwise normal pelvic MRI. Dictated by: Mago Graves M.D. on 10/28/2024 at 14:22 Approved by: Mago Graves M.D. on 10/28/2024 at 14:37
== END ==
PROVIDERS: PCP Family Medicine; Referring Provider Family Medicine; Visit Provider Family Medicine
DX: R74.01 Elevation of levels of liver transaminase levels (principal); N85.2 Hypertrophy of uterus; D25.0 Submucous leiomyoma of uterus; D25.2 Subserosal leiomyoma of uterus
CPT/HCPCS: 72197; 76830; 76856; A9579

== ENCOUNTER → 2025-03-30 11:45 | Outpatient (CLI) | payer MEDICARE, OTHER, SELFPAY ==
--- NOTE | 2025-03-30 | DI.MRI.S_ITS ---
PROCEDURE: MR PELVIS WO/W CON INDICATIONS: COMPUTER SCIENCES PROFESSOR PROTOCOL TECHNIQUE: Coronal HASTE, sagittal breath-hold T2 FSE; axial T1 FSE with and without fat saturation through the pelvis. Optional long- and short-axis uterine nonbreath-hold T2 FSE through the uterus. Sagittal or axial dynamic VIBE during administration of contrast. Post-contrast axial or coronal VIBE/2-D FLASH with fat saturation from the iliac crests to the symphysis. Optional diffusion weighted imaging and ADC may be performed. COMPARISON: [facility], , MR PELVIS WO/W CON, 10/27/2024, 16:10. FINDINGS: Image quality: Motion degraded Lower abdomen: No bowel obstruction in the lower abdomen. No drainable ascites Bladder: Unremarkable Reproductive organs: The uterine endometrium is thin, measuring 3 mm. Cervix is unremarkable. Fibroid uterus, the largest fibroid is FIGO 6 at the fundus, measuring 5.6 x 4.1 x 6.8 cm. Mild internal degenerated components are seen. FIGO 2 fibroid is seen in the left anterior uterus measuring 1.7 x 2.6 x 2.5 cm. Many other intramural and subserosal fibroids are seen. Most are either homogeneous Mildred or mildly heterogeneously enhancing. 1.3 cm right ovarian or paraovarian cyst. No significant left adnexal lesion. Rectum: Unremarkable Vessels and lymph nodes: No aneurysmal artery identified. No lymph nodes enlarged by size criteria. Pelvic wall: Unremarkable Bones: Degenerative osseous changes. IMPRESSION: Enlarged fibroid uterus, largest at the fundus is FIGO 6 measuring up to 6.8 cm. FIGO 2 fibroid is seen in the left anterior uterus. Other findings above. Motion degraded MRI Dictated by: Terence Ross M.D. on 04/02/2025 at 6:24 Approved by: Terence Ross M.D. on 04/02/2025 at 6:31
--- NOTE | 2025-03-30 11:47 | DI.US.S_ITS ---
PROCEDURE: US PELVIC COMPLETE INDICATIONS: Elevation of levels of liver transaminase levels TECHNIQUE: Real-time scanning was performed of the pelvic organs, with image documentation. Additional endovaginal scanning was necessary due to incomplete visualization of the adnexal and endometrial structures by transabdominal scanning. COMPARISON: [facility], MR, MR PELVIS WO/W CON, 03/30/2025, 13:00. [facility], CT, CT ABDOMEN PELVIS W CON, 10/06/2024, 11:00. [facility], US, US PELVIC COMPLETE, 10/27/2024, 15:56. FINDINGS: Uterus: Uterus is anteverted and mildly enlarged in size at 10.9 x 5.4 x 9.4 cm. The myometrium is homogeneous. The endometrium measures 5 mm combined thickness. Numerous hyperechoic uterine lesions are seen, which are attributed to fibroids. The largest 3 measure as follows: Right anterior uterus, intramural, 4.8 x 5 x 4.6 cm Left anterior uterus, intramural, 3.6 x 2.6 x 2.9 cm Mid anterior uterus, intramural, 2.3 x 2.7 x 2.5 cm Ovaries: Neither ovary is well seen. No adnexal masses are seen on either side. Other: No pathologic free abdominal or pelvic fluid. IMPRESSION: The endometrial stripe is not thickened. Enlarged uterus with multiple fibroids. We strive to produce accurate, complete, and clear reports of imaging services. To assist us in improving patient care, this report was composed using standard report templates and voice recognition software. Therefore, it may contain abnormal punctuation, insertions and/or omissions. Occasional wrong-word or sound-alike substitutions may occur. Though we review the report and make efforts to correct it, we do recommend that the report be read carefully in proper context to recognize any text inaccuracies. Dictated by: Jeanmarie Jacome M.D. on 03/30/2025 at 15:07 Approved by: Jeanmarie Jacome M.D. on 03/30/2025 at 15:10
== END ==
LOC: US 11:46
PROVIDERS: PCP Family Medicine; Referring Provider Family Medicine; Visit Provider Family Medicine
DX: R74.01 Elevation of levels of liver transaminase levels (principal); D25.1 Intramural leiomyoma of uterus; N83.201 Unspecified ovarian cyst, right side
CPT/HCPCS: 72197; 76830; 76856; A9579